=== PATIENT | male | born 1950 | race Caucasian/White ===

== ENCOUNTER → 2016-11-10 | Outpatient (CLI) | payer OTHER ==
[~2016-11-10] MED LIST: ASPI81TA28 PO; FINA5TAB PO; OMEG10007 PO; SIMV40TA2 PO
[2016-11-10 12:30] LABS: HEMATOCRIT 45.8 % (42-52); MEAN CELL VOLUME 86.9 fL (80-100); MEAN CORPUSCULAR HEMOGLOBIN 29.4 pg (25-34); MEAN CORPUSCULAR HGB CONC 33.8 g/dl (32-36); MEAN PLATELET VOLUME 10.7 fL (7.4-10.4); PLATELET COUNT 305 K/uL (130-400); RED BLOOD COUNT 5.27 M/uL (4.7-6.1); WHITE BLOOD COUNT 5.26 K/uL (4.8-10.8)
[2016-11-10 12:34] LABS: ALT/SGPT 38 U/L (12-78); BLOOD UREA NITROGEN 16 mg/dl (7-18); BUN/CREATININE RATIO 14.4 (10-20); CALCIUM 9.4 mg/dl (8.5-10.1); CARBON DIOXIDE 27 mmol/L (21-32); CHLORIDE 104 mmol/L (98-107); CHOLESTEROL 193 mg/dl (0-200); GLUCOSE 96 mg/dl (70-99); POTASSIUM 4.3 mmol/L (3.5-5.1); SODIUM 139 mmol/L (136-145)
[2016-11-10 12:38] LABS: ALB/GLOB RATIO 1.1 (0.9-2); ALKALINE PHOSPHATASE 71 U/L (45-117); AST/SGOT 18 U/L (15-37); HDL CHOLESTEROL 65 mg/dl; LDL CHOLESTEROL CALCULATED 110 mg/dl; TRIGLYCERIDES 90 mg/dl (0-150); VERY LOW DENSITY LIPOPROT CALC 18 mg/dl
[2016-11-10 13:05] LABS: ESTIMATED AVERAGE GLUCOSE 108 mg/dl; HA1C FLAG Normal (Normal)
== END | disposition home or self-care (01) ==
LOC: C.LABBFT 09:12
PROVIDERS: ATTEND Internal Medicine
DX: E78.5 Hyperlipidemia, unspecified (principal); R73.9 Hyperglycemia, unspecified; Z12.5 Encounter for screening for malignant neoplasm of prostate

== ENCOUNTER → 2017-11-15 | Outpatient (CLI) | payer OTHER ==
[2017-11-15 12:24] LABS: BASO % 0.4 %; BASO ABS # 0.02 K/uL (0-0.2); EOS % 6.3 %; EOS ABS # 0.32 K/uL (0-0.5); HEMOGLOBIN 14.8 g/dL (14.0-18.0); IG# 0.01 K/uL (0.00-0.02); LYMPH % 35.2 %; LYMPH ABS # 1.79 K/uL (1.2-3.4); MEAN CELL VOLUME 89.2 fL (80-100); MEAN CORPUSCULAR HGB CONC 33.6 g/dl (32-36); MEAN PLATELET VOLUME 10.3 fL (7.4-10.4); MONO % 6.9 %; MONO ABS # 0.35 K/uL (0.11-0.59); PLATELET COUNT 290 K/uL (130-400); RED CELL DISTRIBUTION WIDTH CV 13.6 % (11.5-14.5); RED CELL DISTRIBUTION WIDTH SD 44.6 fL (36.4-46.3); WHITE BLOOD COUNT 5.09 K/uL (4.8-10.8)
[2017-11-15 12:36] LABS: HEMOGLOBIN A1C 5.7 % (4.5-5.6)
[2017-11-15 12:56] LABS: BLOOD UREA NITROGEN 18 mg/dl (7-18); CREATININE 1.03 mg/dl (0.60-1.40); GLUCOSE 106 mg/dl (70-99)
[2017-11-15 12:57] LABS: ALBUMIN 4.1 gm/dl (3.4-5.0); ALT/SGPT 40 U/L (12-78); AST/SGOT 13 U/L (15-37); CALCIUM 8.9 mg/dl (8.5-10.1); CARBON DIOXIDE 26 mmol/L (21-32); POTASSIUM 4.1 mmol/L (3.5-5.1); SODIUM 138 mmol/L (136-145)
[2017-11-15 13:01] LABS: ALKALINE PHOSPHATASE 61 U/L (45-117); CHOLESTEROL 189 mg/dl (0-200); LDL CHOLESTEROL CALCULATED 110 mg/dl; TOTAL PROTEIN 7.4 gm/dl (6.4-8.2)
== END | disposition home or self-care (01) ==
LOC: C.LABBFT 07:43
PROVIDERS: ATTEND Internal Medicine
DX: E78.5 Hyperlipidemia, unspecified (principal); Z12.5 Encounter for screening for malignant neoplasm of prostate; R73.9 Hyperglycemia, unspecified

== ENCOUNTER → 2018-01-19 | Day surgery (SDC) | payer OTHER ==
[2018-01-10 16:35] VITALS: Ht 176.5 cm; Wt 90.9 kg
[~2018-01-19] VITALS: Ht 176.5 cm; Wt 90.9 kg
[~2018-01-19] MED LIST changes: +LIDOCAINE HCL 2% 2 ML VIAL (20MG/ML) ONE; +MULT-1027 PO; -OMEG10007 PO; +PROPOFOL IV EMULSION 10 MG/ML 20 ML VIAL ONE; +SODIUM CHLORIDE 0.9% 500ML 500 ML IV ONE
--- NOTE | 2018-01-19 14:01 | Endo History and Physical ---
History & Physical Date of Service: January 19, 2018. Chief Complaint: Hx of polyps Referring Physician: August Vaca History of Present Illness 67 yo CF who presents for colonoscopy secondary to history of colon polyps. Past Medical History Male Genitourinary Prob., High Cholesterol Past Surgical History Hx Cardiac Surgery: No Hx Internal Defibrillator: No Hx Pacemaker: No Hx Abdominal Surgery: Yes (HERNIA REPAIR) Hx of Implantable Prosthesis: No Hx Cancer Surgery: Yes (PROSTATE) Hx Thoracic Surgery: No Hx Orthopedic: Yes (R KNEE CARTLIDGE 30YRS AGO) Hx Urinary Tract Surgery: Yes (PROSTATE CANCER "SEEDING") Family History None Social History Smoking Status: Never Smoker Hx Substance Use: No Hx Alcohol Use: Yes (3-4 GLASSES OF WINE A WEEK) Allergies Coded Allergies: No Known Allergies (Unverified , 01/19/18) Current Medications Reported Home Medications Medications Dose Route/Sig Max Daily Dose Days Date Category Multi Vitamin (Multiple Vitamin) 1 Tab Tab 1 Tab PO DAILY 01/10/18 Reported Zocor (Simvastatin) 40 Mg Tab 40 Mg PO QPM 04/01/14 Reported Proscar (Finasteride) 5 Mg Tab 5 Mg PO DAILY 04/01/14 Reported Aspirin Ec (Aspirin) 81 Mg Tab 81 Mg PO DAILY 04/01/14 Reported Vital Signs Weight (Kilograms): 90.91 Height (Feet): 5 Height (Inches): 9.5 Date Time Temp Pulse Resp B/P (MAP) Pulse Ox O2 Delivery O2 Flow Rate FiO2 01/19/18 13:54 36.5 83 18 154/95 (114) 96 Room Air Physical Exam General Appearance: WD/WN, no apparent distress Respiratory/Chest: Auscultation: breath sounds normal Cardiovascular: Heart Auscultation: RRR Abdomen: Bowel Sounds: normal Inspection & Palpation: soft, non-distended, no tenderness, guarding & rebound Assessment and Plan Assessment: 30 yo female who presents for colonoscopy secondary to rectal bleeding. Plan: Proceed with colonoscopy.
--- NOTE | 2018-01-19 14:40 | Discharge Instructions ---
Endoscopy Patient Instructions Date / Procedure(s) Performed January 19, 2018. Colonoscopy Allergy Information Coded Allergies: No Known Allergies (Unverified , 01/19/18) Discharge Date / Findings January 19, 2018. Colon polyps Diverticulosis Internal hemorrhoids Medication Instructions Stopped Medication(s): 81mg Aspirin last taken on 01/09/18 OK to resume all medications today as prescribed Reported Home Medications Medications Dose Route/Sig Max Daily Dose Days Date Category Multi Vitamin (Multiple Vitamin) 1 Tab Tab 1 Tab PO DAILY 01/10/18 Reported Zocor (Simvastatin) 40 Mg Tab 40 Mg PO QPM 04/01/14 Reported Proscar (Finasteride) 5 Mg Tab 5 Mg PO DAILY 04/01/14 Reported Aspirin Ec (Aspirin) 81 Mg Tab 81 Mg PO DAILY 04/01/14 Reported Provider Instructions Activity Restrictions - No exercising or heavy lifting for 24 hours. - Do not drink alcohol the day of the procedure. - Do not drive a car or operate machinery until the day after the procedure. - Do not make any important decisions or sign important papers in 24 hours after the procedure. Following Day: - Return to full activity which may include returning to work/school. Diet Start your diet with liquids and light foods (jello, soup, juice, toast). Then eat your usual diet if not nauseated. Treatment For Common After Affects For mild abdominal pain, bloating, or excessive gas: - Rest - Eat lightly - Lie on right side Follow-Up Information Follow-up with August Vaca as scheduled Anesthesia Information What You Should Know You have had a procedure that required some medicine to reduce anxiety and discomfort. This treatment is called moderate sedation. After receiving the treatment, you may be sleepy, but you will be able to breathe on your own. The effects of the treatment may last for several hours. Follow these instructions along with Activity/Diet recommendations noted above: * Do NOT do anything where dizziness or clumsiness would be dangerous. * Rest quietly at home today, then you can be up and about tomorrow. * Have a responsible person stay with you the rest of today. * You may have had an I.V. today. If so, you may take the dressing off later today. Recommendations Call your doctor if: * Trouble breathing * Continuous vomiting for more than 24 hours * Temperature above 101 degrees * Severe abdominal pain or bloating * Pain not relieved by pain medicine ordered * There is increased drainage or redness from any incision * A large amount of rectal bleeding greater than 2-3 tablespoons. (If you had a polyp/s removed or have hemorrhoids, a small amount of blood - from the rectum is to be expected.) * You have any unanswered questions or concerns. IN THE EVENT OF A SERIOUS EMERGENCY, GO TO THE NEAREST EMERGENCY ROOM Your discharge instructions were prepared by provider Sumeet Cruz. Patient Instructions Signature Page Gama Servin Patient (or Guardian) Signature/Date: I have read and understand the instructions given to me by my caregivers. Caregiver/RN/Doctor Signature/Date: The above-named patient and/or guardian has received patient instructions on this date. + Original Patient Signature Page (only) stays with chart. Please make copy for patient.
--- NOTE | 2018-01-19 14:55 | GI REPORT ---
Patient Name: Gama Servin Procedure Date: 01/19/2018 2:17 PM Date of : 1950 Admit Type: Outpatient Age: 67 Gender: Male Attending MD: Sumeet Cruz DO Procedure: Colonoscopy Providers: Sumeet Cruz DO Referring MD: August Vaca Indications: High risk colon cancer surveillance: Personal history of colonic polyps Medicines: Monitored Anesthesia Care Complications: No immediate complications. Estimated Blood Loss: Estimated blood loss: none. Procedure: Pre-Anesthesia Assessment: - Prior to the procedure, a History and Physical was performed, and patient medications and allergies were reviewed. The patient's tolerance of previous anesthesia was also reviewed. The risks and benefits of the procedure and the sedation options and risks were discussed with the patient. All questions were answered, and informed consent was obtained. Prior Anticoagulants: The patient has taken aspirin, last dose was 10 days prior to procedure. ASA Grade Assessment: II - A patient with mild systemic disease. After reviewing the risks and benefits, the patient was deemed in satisfactory condition to undergo the procedure. After I obtained informed consent, the scope was passed under direct vision. Throughout the procedure, the patient's blood pressure, pulse, and oxygen saturations were monitored continuously. The scope was introduced through the anus and advanced to the terminal ileum. The colonoscopy was performed without difficulty. The patient tolerated the procedure well. The quality of the bowel preparation was good. The terminal ileum, ileocecal valve, appendiceal orifice, and rectum were photographed. Findings: The perianal and digital rectal examinations were normal. A 3 mm polyp was found in the ascending colon. The polyp was sessile. The polyp was removed with a cold biopsy forceps. Resection and retrieval were complete. Two sessile polyps were found in the ascending colon and cecum. The polyps were 4 to 6 mm in size. These polyps were removed with a hot snare. Resection and retrieval were complete. Multiple small-mouthed diverticula were found in the sigmoid colon. Non-bleeding internal hemorrhoids were found during retroflexion. The hemorrhoids were small. Impression: - One 3 mm polyp in the ascending colon, removed with a cold biopsy forceps. Resected and retrieved. - Two 4 to 6 mm polyps in the ascending colon and in the cecum, removed with a hot snare. Resected and retrieved. - Diverticulosis in the sigmoid colon. - Non-bleeding internal hemorrhoids. Recommendation: - Resume previous diet. - Continue present medications. - Repeat colonoscopy for surveillance based on pathology results. - Return to primary care physician as previously scheduled. Sumeet Cruz, DO 01/19/2018 2:55:19 PM This report has been signed electronically. Note Initiated On: 01/19/2018 2:17 PM Number of Addenda: 0 I attest to the content of the Intraoperative Record and orders documented therein, exceptions below {[id number]}
--- NOTE | 2018-01-19 15:04 | Anesthesiology Progress Note ---
Anesthesia Post Op Note Date & Time January 19, 2018 at 15:03 Vital Signs Pain Intensity: 0 Vital Signs Past 12 Hours Date Time Temp Pulse Resp B/P (MAP) Pulse Ox O2 Delivery O2 Flow Rate FiO2 01/19/18 14:45 81 20 124/76 (92) 96 Room Air 01/19/18 13:54 36.5 83 18 154/95 (114) 96 Room Air Notes Mental Status: alert / awake / arousable, participated in evaluation Pt Amnestic to Procedure: Yes Nausea / Vomiting: adequately controlled Pain: adequately controlled Airway Patency, RR, SpO2: stable & adequate BP & HR: stable & adequate Hydration State: stable & adequate Anesthetic Complications: no major complications apparent
[2018-01-19 15:17] VITALS: BP 131/87; PULSE 69; O2SAT 100
== END | disposition home or self-care (01) ==
LOC: C.GI 13:35
PROVIDERS: ATTEND Internal Medicine
DX: Z12.11 Encounter for screening for malignant neoplasm of colon (principal); D12.2 Benign neoplasm of ascending colon; D12.0 Benign neoplasm of cecum; K57.30 Diverticulosis of large intestine without perforation or abscess without bleeding; K64.8 Other hemorrhoids; Z86.010 Personal history of colon polyps; Z85.46 Personal history of malignant neoplasm of prostate; M19.90 Unspecified osteoarthritis, unspecified site; Z79.899 Other long term (current) drug therapy

== ENCOUNTER 2019-07-13 06:35 | Inpatient (IN) ==
--- NOTE | 2019-06-11 20:53 | PAT Medication Instructions ---
Medication Instructions Date of Service June 11, 2019 Home Medications aspirin 81 mg tablet 81 mg PO QAM finasteride 5 mg tablet 5 mg PO QAM multivitamin 1 tab PO QAM simvastatin 40 mg PO PM ASK your prescriber and surgeon aspirin 81 mg tablet 81 mg PO QAM DO NOT take the morning of surgery multivitamin 1 tab PO QAM Take morning of surgery With a small sip of water, OTHERWISE NOTHING TO EAT OR DRINK AFTER MIDNIGHT: finasteride 5 mg tablet 5 mg PO QAM Take evening before surgery simvastatin 40 mg PO PM Other Notes If you have any questions please call us at [phone] or [phone] or [phone] or [phone]
--- NOTE | 2019-06-12 10:15 | Anesthesiology Consultation ---
Date of Service June 12, 2019 Assessment & Plan (1) Encounter for pre-operative examination: Chart Review Chart Review: Pending: Refer to Additional Notes / Consult section (pending preop testing (labs, EKG, CXR)) and Patient seen in Pre Admission Testing Teaching & Discussion Pre-Anesthesia Teaching/Discussion Notes: Instructed NPO after midnight before surgery,except medications with 15 cc of water. Medication instructions provide d according to the PAT guidelines. History Surgery Operation Date: 07/13/19 08:20 Proposed Procedures p Right Total Shoulder Arthroplasty - Del Daugherty DO Height/Weight Height: 5 ft 9 in Weight: 98 kg Allergies Allergy/AdvReac Type Severity Reaction Status Date / Time No Known Allergies Allergy Unverified 06/05/19 08:27 Medications Home Medications Medication Instructions Recorded Confirmed Last Taken aspirin 81 mg tablet 81 mg PO QAM tab 04/05/19 06/05/19 Unknown finasteride 5 mg tablet 5 mg PO QAM #90 tab 04/05/19 06/05/19 Unknown multivitamin 1 tab PO QAM 06/05/19 06/05/19 Unknown simvastatin 40 mg PO PM 06/05/19 06/05/19 Unknown Past Medical History Medical History BPH (benign prostatic hyperplasia) Hyperlipidemia Osteoarthritis Exercise / Class Metabolic Activity II 4-5 Yardwork/Stairs/Walk up hill Past Family History Family History Mother Family history of reaction to anesthesia PONV Past Surgical History Surgical History History of arthroscopy of right knee History of colonoscopy History of repair of hiatal hernia History of surgery CALCIUM DEPOSIT REMOVED FROM SCALP Past Anesthesia History No Hx of Anesthesia Complications and No Family Hx of Anesthesia Complications History of PONV No Hx of PONV and No Hx of Motion Sickness Social History Smoking Status: Never smoker Do You Dip or Chew Tobacco: No Hx Alcohol Use: Yes Alcohol type: beer, wine and hard liquor alcohol intake frequency: a few times a week Hx Substance Use: No substance use type: does not use Review of Systems Patient denies chest pain, shortness of breath, dyspnea on exertion, reflux, cough, wheezing, palpitations. Physical Exam Vital Signs VITALS BP 135/85 P 66 TEMP 97.7 SP02 97%RA RESP 18 PHYSICAL Full neck and c-spine range of motion. Full TMJ range of motion. TMD 4 finger breaths Mallampati Score 3 Dentition: intact, crowns several all over Lungs: clear throughout to auscultation Cardiac: regular rate and rhythm, no murmurs noted Spine: normal Carotid arteries: negative bruit Extremities: no edema
--- NOTE | 2019-06-12 11:10 | XRay Report ---
TWO VIEW CHEST CLINICAL HISTORY: Preoperative examination. FINDINGS: PA and lateral chest radiographs are obtained. No prior studies are available for compariso n at the time of dictation. The heart is top normal for projection. Linear atelectasis is noted in the left lower lobe. The lungs and pleural spaces are otherwise clear. There is no pneumothorax. The skeletal structures are osteopenic. Mild degenerative change and scoliosis are noted in the thoracic spine. The bony thorax appears intact. IMPRESSION: No active disease in the chest. Electronically signed by: Niranjan Isaac M.D. 06/12/2019 11:08 AM
[2019-06-12 11:21] LABS: Basophils # (auto) 0.02 K/uL (0-0.2); Basophils % (auto) 0.4 %; Eosinophils # (auto) 0.07 K/uL (0-0.5); Eosinophils % (auto) 1.3 %; Hematocrit (blood only) 44.6 % (42-52); Hemoglobin 15.2 g/dL (14.0-18.0); Immature Granulocytes # (auto) 0.01 K/uL (0.00-0.02); Immature Granulocytes % (auto) 0.2 %; Lymphocytes # (auto) 1.43 K/uL (1.2-3.4); Lymphocytes % (auto) 25.6 %; Mean Corpuscular Hemoglobin 30.7 pg (25-34); Mean Corpuscular Hgb Conc 34.1 g/dL (32-36); Mean Corpuscular Volume 90.1 fL (80-100); Mean Platelet Volume 10.7 fL (7.4-10.4); Monocytes # (auto) 0.43 K/uL (0.11-0.59); Monocytes % (auto) 7.7 %; Neutrophils # (auto) 3.62 K/uL (1.4-6.5); Neutrophils % (auto) 64.8 %; Platelet Count 297 K/uL (130-400); RDW Coefficient of Variation 13.4 % (11.5-14.5); Red Blood Count 4.95 M/uL (4.7-6.1); White Blood Count 5.58 K/uL (4.8-10.8)
[2019-06-12 11:31] LABS: Partial Thromboplastin Time 26.9 Seconds (21.0-31.0); Prothrombin Time 10.5 Seconds (9.0-12.0)
[2019-06-12 11:54] LABS: BUN Creatinine Ratio 13.3 (10-20); Calcium 9.8 mg/dl (8.5-10.1); Creatinine Clr Calc Pharmacy 82.7 ml/min; Est GFR (African American) 92.4; Est GFR (Non-African American) 79.8; Potassium 4.2 mmol/L (3.5-5.1)
--- NOTE | 2019-07-12 14:41 | History & Physical Report ---
Date of Service July 12, 2019 Assessment & Plan (1) Osteoarthritis of right shoulder: We will proceed with a right total shoulder arthroplasty. Postoperatively he will be placed in a sling and kept overnight in the hospital for postoperative medical management. He plans to use energy physical therapy upon discharge. Present on Admission?: Yes History of Present Illness Chief Complaint: Primary osteoarthritis of the right shoulder Primary Care Provider: August Vaca MD Gama is a pleasant 69-year-old male who is been dealing with chronic increasing right shoulder pain. X-rays and clinical examination have been diagnostic for primary osteoarthritis of the right shoulder. After failing conservative treatment, he has elected to proceed with a right total shoulder arthroplasty. Allergies Allergy/AdvReac Type Severity Reaction Status Date / Time No Known Allergies Allergy Unverified 06/05/19 08:27 Home Medications Home Medications Medication Instructions Recorded Confirmed Type aspirin 81 mg tablet 81 mg PO QAM tab 04/05/19 06/05/19 History finasteride 5 mg tablet 5 mg PO QAM #90 tab 04/05/19 06/05/19 History multivitamin 1 tab PO QAM 06/05/19 06/05/19 History simvastatin 40 mg PO PM 06/05/19 06/05/19 History Past Med/Surg History Medical History BPH (benign prostatic hyperplasia) Hyperlipidemia Osteoarthritis Surgical History History of arthroscopy of right knee History of colonoscopy History of repair of hiatal hernia History of surgery CALCIUM DEPOSIT REMOVED FROM SCALP Family History Mother Family history of reaction to anesthesia PONV Social History Preferred Language: Slovak Communication Ability: Effective 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 Beliefs That Will Affect Care: None Current Living Situation: Spouse Feels Safe at Home: Yes Smoking Status: Never smoker Second Hand Exposure: Yes ( A CHILD) ; Hx Alcohol Use: Yes Alcohol type: beer, wine and hard liquor Hx Substance Use: No Review of Systems All systems reviewed & are unremarkable except as noted in HPI & below Physical Exam Constitutional: WD/WN, vitals as above Eyes: PERRL, conjunctivae normal, anicteric sclerae ENMT: external ear and nose normal, oropharynx normal Neck: trachea midline, no thyromegaly Respiratory: normal respiratory effort Cardiovascular: RRR, no murmur, no edema Gastrointestinal (Abdomen): normal bowel sounds, soft, nontender, no hepatosplenomegaly Musculoskeletal: Physical examination of the right shoulder reveals decreased range of motion and crepitis throughout. There is good strength with full can testing and external rotation. There is tenderness palpation along the anterior glenohumeral joint line. The right upper extremity is neurovascularly intact. Psychiatric: A+Ox3, euthymic affect Results & Data Diagnostic Findings Radiographs of the right shoulder show osteoarthritis of the glenohumeral joint. There is joint space narrowing, osteophyte formation, and uxlu-mm-glet articulation.
[~2019-07-13 06:35] MED LIST changes: +ACETAMINOPHEN 500 MG TAB PO SCH; -ASPI81TA28 PO; +BUPIVACAINE 0.5 % 5 MG/1 ML PF 10ML VIAL ONE; +CEFAZOLIN 2000MG 2,000 MG/15 ML SYR IV SCH; +FAMOTIDINE 20 MG TAB PO SCH; -FINA5TAB PO; +GABAPENTIN 300 MG CAP PO SCH; -LIDOCAINE HCL 2% 2 ML VIAL (20MG/ML) ONE; +LR 15ML/HR IV SCH; +LR 60ML/HR IV SCH; -MULT-1027 PO; -PROPOFOL IV EMULSION 10 MG/ML 20 ML VIAL ONE; +ROPIVACAINE 0.5% HCL/PF 150 MG, BUPIVACAINE 0.5% MPF 30 ML, EPINEPHrine 30MG/30ML (OR U... INSTIL SCH; -SIMV40TA2 PO; -SODIUM CHLORIDE 0.9% 500ML 500 ML IV ONE; +TRANEXAMIC ACID 1,000 MG **IV Intra-op IV SCH; +TRANEXAMIC ACID 1,000 MG **IV Pre-op IV SCH
--- NOTE | 2019-07-13 06:50 | History & Physical Bridge Note ---
Date of Service July 13, 2019 History & Physical Bridge Note I have examined the patient, reviewed the History & Physical and in the interval since the performance of the History & Physical I have noted the following changes of clinical significance: no changes noted
[2019-07-13] MEDS ORDERED: MIDAZOLAM HCL 1 MG/ML 2ML VIAL ONE (07:28)
[2019-07-13] MEDS ORDERED: fentaNYL citrate 100 MCG/2 ML VIAL ONE ×2 (07:28→11:03)
[2019-07-13] MEDS ORDERED: LIDOCAINE HCL 2% 2 ML VIAL/AMP(20MG/ML) INFIL ONE (07:28)
[2019-07-13] MEDS ORDERED: ONDANSETRON INJ 2 MG/ML 2 ML VIAL ONE (07:28)
[2019-07-13] MEDS ORDERED: PROPOFOL IV EMULSION 10 MG/ML 20 ML VIAL IV ONE (07:28)
[2019-07-13] MEDS ORDERED: HYDROmorphone INJ 1 MG/ML SYRINGE IV PRN (07:58)
[2019-07-13] MEDS ORDERED: ATROPINE SULFATE 0.1 MG/ML 10ML SYR IV PRN (07:58)
[2019-07-13] MEDS ORDERED: ONDANSETRON INJ 2 MG/ML 2 ML VIAL IV PRN ×2 (07:58→12:28)
[2019-07-13] MEDS ORDERED: ePHEDrine sulfate 50 MG/ML AMP IV PRN (07:58)
[2019-07-13] MEDS ORDERED: fentaNYL citrate 100 MCG/2 ML VIAL IV PRN (07:58)
[2019-07-13] MEDS ORDERED: ORTHO JOINT ANESTHETIC ONE (08:58)
--- NOTE | 2019-07-13 10:42 | Operative Report ---
Post Operative Report Pre & Post Diagnosis Operation Date: 07/13/19 09:10 Pre-Op Diagnosis: RIGHT SHOULDER DEGENERATIVE JOINT DISEASE Post-Op Diagnosis: RIGHT SHOULDER DEGENERATIVE JOINT DISEASE I identified the patient and participated in the time-out.: Yes Procedure Operation Date: 07/13/19 09:10 Actual Procedures p Right Total Shoulder Arthroplasty(Right) - Del Daugherty DO Surgeon Del Daugherty, Trains Service Conductor Del Crowley PAC Estimated Blood Loss 150 Findings Consistent with Post-Op Diagnosis Specimens Right humeral head Complications none Disposition Disposition: Recovery Room Indications Gama is a pleasant 69-year-old male who presented my office with chronic increasing right shoulder pain. X-rays and clinical examination were diagnostic for advanced osteoarthritis of the right shoulder. After failing conservative treatment, he elected to proceed with a right total shoulder arthroplasty. Description of Procedure Implants used: I used a Biomet Comprehensive total shoulder arthroplasty system with a size 12 press fit mini humeral stem, a size 54 x 21 eccentric humeral head, and a large size glenoid with a Regenerex peg. The glenoid was cemented in place with Palac os G cement. The patient arrived at [facility] for the above procedure. There were seen in the preoperative holding area and the operative extremity was identified and signed. They were given a preoperative antibiotic and an interscalene nerve block. They were taken back to the operating room, laid on table in supine position, and put under general anesthesia. They were then put into the beachchair position. The shoulder was then prepped and draped in sterile fashion. A timeout was done and the patient and the operative extremity was properly identified. A deltopectoral approach was used. Dissection was taken down through the fascia and the deltoid was retracted laterally and the conjoined tendon was retracted medially. The anterior shoulder was exposed. The long head of the biceps tendon was tenodesed to the upper border of the pectoralis major. The subscapularis was then released off the lesser tuberosity with a centimeter of cuff tissue remaining. The inferior capsule was released and the humeral head was dislocated. The rotator cuff was inspected and intact. A canal finding reamer was sent down the center of the humeral canal. Sequential reaming up to a size 12 reamer was done. Offset reamer a proximal humeral resection guide was placed. The proximal humerus was resected at 135 of inclination and 30 of retroversion. Inferior osteophytes were then removed and the glenoid was exposed. Time was spent doing an appropriate labral release. The glenoid measured to be a size large. A Biomet signature guide was then attached onto the anterior rim of the glenoid. A 3.2 mm Steinmann pin was then placed in the total shoulder arthroplasty hole. The glenoid was then reamed with a propeller reamer. The central post cutter was then used to prepare for the central boss. The cannulated peripheral peg drill guide was then placed and 3 peg holes were drilled. The final size large glenoid was then cemented in place with Palacos G cement. Surrounding soft tissues were then injected with 100 cc of an orthopedic pain control cocktail. Once cement had dried the proximal humerus was once again exposed. Sequential broaching of the humerus up to a size 12 broach was done. Off that broach a size 54 x 21 eccentric humeral head was trialed. The shoulder was then reduced, brought through a full range of motion and felt to be stable. The shoulder was then dislocated and the broach was removed. The final size 12 mini humeral stem implant was then impacted into place. A size 54 x 21 eccentric humeral head was then impacted onto the humeral stem. The shoulder was then reduced and once again brought through a full range of motion and felt to be stable. The subscapularis was then tenodesed back to the lesser tuberosity with transosseous FiberWire sutures and side to side sutures with the arm in 45 of external rotation. 2 sutures were placed in the lateral rotator interval. A dilute betadyne lavage was then done for 3 minutes. The joint was then irrigated with normal saline solution. Hemostasis was obtained. The skin was then closed with 2-0 Vicryl, 3-0V lock suture, and bryanna. A soft dressing was placed as well as a regular arm sling. The patient was then extubated and transferred to a hospital bed. There were taken to the postanesthesia care unit in stable condition. The tolerated the procedure well. I attest to the content of the Intraoperative Record and any orders documented therein. Any exceptions are noted below.
[2019-07-13] MEDS ORDERED: GLYCOPYRROLATE 0.2 MG/ML VIAL ONE (10:51)
[2019-07-13] MEDS ORDERED: NEOSTIGMINE METHYLSULFATE 5 MG/5 ML SYR ONE (10:51)
[2019-07-13] MEDS ORDERED: PHENYLEPHRINE 100MCG/ML 5ML SYR ONE (10:51)
[2019-07-13] MEDS ORDERED: ePHEDrine sulfate 50 MG/ML SYR ONE (10:51)
[2019-07-13] MEDS ORDERED: ROCURONIUM BROMIDE 10 MG/ML 5 ML VIAL ONE (10:51)
--- NOTE | 2019-07-13 11:34 | XRay Report ---
XR shoulder RT min 2V routine CLINICAL HISTORY: Post shoulder surgery COMPARISON STUDY: Right shoulder CT 06/12/2019. FINDINGS: Status post right total shoulder arthroplasty. The hardware appears intact. No fracture or dislocation. Skin bryanna are in place. IMPRESSION: Status post right total shoulder arthroplasty. No evidence for hardware complication. Electronically signed by: Ghanshyam Hill M.D. 07/13/2019 11:32 AM
[2019-07-13] MEDS ORDERED: MAGNESIUM HYDROXIDE SUSP 30 ML UDC PO PRN (12:28)
[2019-07-13] MEDS ORDERED: NALOXONE HCL 0.4 MG/1 ML VIAL/CARP IV PRN (12:28)
[2019-07-13] MEDS ORDERED: HYDROmorphone INJ 0.5 MG/0.5 ML SYR IV PRN (12:28)
[2019-07-13] MEDS ORDERED: BISACODYL 10 MG SUPP PR PRN (12:28)
[2019-07-13] MEDS ORDERED: OXYCODONE HCL IR 5 MG TAB (IMMEDIATE RELEASE) PO PRN (12:28)
[2019-07-13] MEDS ORDERED: METOCLOPRAMIDE HCL INJ 5 MG/ML 2 ML VIAL IV PRN (12:28)
[2019-07-13] MEDS ORDERED: SODIUM CHLORIDE 0.9% 1000ML 1,000 ML IV SCH (12:28)
[2019-07-13] MEDS: KETOROLAC TROMETHAMINE 15 MG/ML VIAL IV SCH ×2 (13:31→18:53)
[2019-07-13] MEDS: ACETAMINOPHEN 500 MG TAB PO SCH ×2 (13:31→21:03)
--- NOTE | 2019-07-13 14:30 | Anesthesiology Progress Note ---
Date of Service July 13, 2019 Anesthesia Post Procedure Vital Signs Vital Signs: Temp Pulse Pulse Pulse Resp BP BP 07/13/19 13:25 36.4 C L 84 17 120/74 07/13/19 12:49 36.4 C L 63 17 120/74 07/13/19 12:15 36.5 C 66 18 128/82 07/13/19 11:55 36.1 C L 70 16 134/88 07/13/19 11:45 82 16 138/88 07/13/19 11:35 77 14 154/88 H 07/13/19 11:25 88 14 163/90 H 07/13/19 11:15 36 C L 73 12 136/97 07/13/19 07:01 36.7 C 75 22 147/93 H Pulse Ox 07/13/19 13:25 96 07/13/19 12:49 94 07/13/19 12:15 96 07/13/19 11:55 95 07/13/19 11:45 96 07/13/19 11:35 98 07/13/19 11:25 99 07/13/19 11:15 99 07/13/19 07:01 98 Transfer of Care Handoff Completed per policy Notes Mental Status: alert / awake / arousable and participated in evaluation Patient Amnestic to Procedure: Yes Nausea / Vomiting: adequately controlled Pain: adequately controlled Airway Patency, RR, SpO2: stable & adequate BP & HR: stable & adequate Hydration State: stable & adequate Anesthetic Complications: no major complications apparent and Pt Satisfied with anesthetic care
[2019-07-13] MEDS: CEFAZOLIN 2000MG 2,000 MG/15 ML SYR IV SCH (16:29)
[2019-07-13] MEDS ORDERED: SIMVASTATIN 40 MG TAB PO SCH (21:00)
[2019-07-13] MEDS ORDERED: SENNA 8.6 MG TAB PO SCH (21:00)
[2019-07-13] MEDS: DOCUSATE SODIUM 100 MG CAP PO SCH (21:03)
[2019-07-14] MEDS: KETOROLAC TROMETHAMINE 15 MG/ML VIAL IV SCH ×2 (00:03→06:13)
[2019-07-14] MEDS: CEFAZOLIN 2000MG 2,000 MG/15 ML SYR IV SCH (00:09)
[2019-07-14 05:24] LABS: Basophils # (auto) 0.01 K/uL (0-0.2); Basophils % (auto) 0.1 %; Eosinophils # (auto) 0.01 K/uL (0-0.5); Eosinophils % (auto) 0.1 %; Hematocrit (blood only) 38.6 % (42-52); Hemoglobin 12.8 g/dL (14.0-18.0); Immature Granulocytes # (auto) 0.02 K/uL (0.00-0.02); Immature Granulocytes % (auto) 0.2 %; Lymphocytes # (auto) 1.13 K/uL (1.2-3.4); Lymphocytes % (auto) 9.9 %; Mean Corpuscular Hemoglobin 29.8 pg (25-34); Mean Corpuscular Hgb Conc 33.2 g/dL (32-36); Mean Platelet Volume 10.1 fL (7.4-10.4); Monocytes # (auto) 0.93 K/uL (0.11-0.59); Monocytes % (auto) 8.2 %; Neutrophils # (auto) 9.29 K/uL (1.4-6.5); Neutrophils % (auto) 81.5 %; Platelet Count 249 K/uL (130-400); RDW Coefficient of Variation 13.5 % (11.5-14.5); RDW Standard Deviation 44.3 fL (36.4-46.3); Red Blood Count 4.29 M/uL (4.7-6.1); White Blood Count 11.39 K/uL (4.8-10.8)
[2019-07-14 05:54] LABS: BUN Creatinine Ratio 13.1 (10-20); Calcium 8.5 mg/dl (8.5-10.1); Creatinine Clr Calc Pharmacy 76.8 ml/min; Est GFR (African American) 85.9; Est GFR (Non-African American) 74.1; Potassium 4.2 mmol/L (3.5-5.1)
[2019-07-14] MEDS: ACETAMINOPHEN 500 MG TAB PO SCH (06:12)
[2019-07-14] MEDS: DOCUSATE SODIUM 100 MG CAP PO SCH (08:37)
--- NOTE | 2019-07-14 08:44 | Orthopedic Progress Note ---
Date of Service July 14, 2019 Assessment & Plan (1) Osteoarthritis of right shoulder: Overall is doing very well. Is not having pain in the right shoulder. He will be seen by physical therapy this morning for ambulation and range of motion exercises. He can be discharged home later this morning. He will follow-up with orthopedics in 2 weeks. Present on Admission?: Yes Subjective Gama was seen and examined at bedside this morning. Overall is doing very well. Is not have any pain in the right shoulder. He is happy with his progress and has no complaints. Physical Exam Musculoskeletal: On physical examination of the right shoulder, the dressing is clean and dry. He is still having difficulty dorsiflexing his wrist and extend his thumb. The nerve block is still in effect. He is wearing a sling as instructed. Results & Data Vital Signs (Past 12 Hours) Vital Signs Temp Pulse Resp BP Pulse Ox 07/14/19 07:12 36.5 C 66 18 137/78 97 07/14/19 03:20 36.8 C 64 18 123/74 96 07/13/19 23:45 36.6 C 61 16 120/74 95 Laboratory Results H & H 06/12/19 07/14/19 Range/Units 10:35 05:01 Hgb 15.2 12.8 L (14.0-18.0) g/dL Hct 44.6 38.6 L (42-52) % Coagulation 06/12/19 Range/Units 10:35 INR 1.0 (0.9-1.1) Diagnostic Findings Postoperative x-rays of the right shoulder show the prosthesis to be in anatomic alignment without any evidence of fracture, dislocation, or loosening. PG Care Time/CCT Total # of Minutes Spent Total Time Spent with Patient: Total time spent is greater than 50% in coordination of care (as documented) at patient's floor/unit and/or counseling patient:
--- NOTE | 2019-07-14 08:45 | Discharge Summary ---
Date of Service July 14, 2019 Admission HPI Per Admitting Provider Gama is a pleasant 69-year-old male who is been dealing with chronic increasing right shoulder pain. X-rays and clinical examination have been diagnostic for primary osteoarthritis of the right shoulder. After failing conservative treatment, he has elected to proceed with a right total shoulder arthroplasty. Principal Diagnosis Right total shoulder arthroplasty Discharge Data Allergies Allergy/AdvReac Type Severity Reaction Status Date / Time No Known Allergies Allergy Verified 07/13/19 06:59 Consultations 07/13/19 12:28 Consult Case Management - Discharge Planning Routine Procedures Performed Operation Date: 07/13/19 09:10 Actual Procedures p Right Total Shoulder Arthroplasty(Right) - Del Daugherty DO Ordered Studies 07/13/19 05:00 US - OR guided needle placemen Routine Hospital Course (1) Osteoarthritis of right shoulder: On July 13, 2019 Gama arrived at [facility] and underwent a right total shoulder arthroplasty without complication. He had a general anesthetic and a right interscalene nerve block. Postoperatively he was placed in the arm sling and discharged to general orthopedic floors. His hospital course is uneventful. On postop day #1 his H&H was stable and his pain was well controlled. He was able to participate well with physical therapy. He was then discharged home. He will follow-up with orthopedics in 2 weeks. Total Time Total Time Spent Total Time Spent (In Minutes): 20 Discharge Plan Discharge Items Patient Disposition: Home - Home Health Services Reason For Visit: RIGHT SHOULDER DEGENERATIVE JOINT DISEASE Discharge Diagnosis: Right total shoulder arthroplasty Activity: As commented below Non-emergency contact: Surgeon Call non-emergency contact if: your wound has increased redness and your wound has increased drainage Follow-up/Referrals: August Vaca III, MD [Primary Care Provider] - Diet: Regular Addtl Attending Provider Instructions: Activity and Therapy Recommendations: * If you are using [facility] then therapy will be provided at your home until they feel you have accomplished all of your goals. * If you are using [facility] then Physical Therapy will be provided until they feel you are ready to start Outpatient Physical Therapy. * If you are not using home therapy then Outpatient Physical Therapy should start about 3-5 days from your day of surgery. Therapy will last about 8-12 weeks * Wear your sling for 3 weeks, unless otherwise instructed. You may remove your sling to shower and to dress, but otherwise, you should be in your sling at all times, including while sleeping * The shoulder replacement is very stable and you can use your hand while in the sling * You were shown a series of exercises in the hospital. Do these exercises daily including the exercises you were shown in physical therapy. Medications: * Narcotic You will likely be sent home from the hospital with a prescription for the narcotic pain medication that worked best throughout your stay. * Other medications may be prescribed for specific circumstances. If you have any questions, please call the office at . * Resume previous home medications unless otherwise instructed Dressing Care: Leave the plastic dressing in place for 5 days. After 5 days you may remove the plastic dressing. If the incision is not draining then you may leave the bryanna open to air. If there is a little bit of drainage or if the bryanna are getting stuck on your clothing then cover the incision with a dry dressing. The bryanna will be removed at your 2 week follow-up appointment. Showering: You may shower with the plastic dressing in place. Let the shower spray hit the other shoulder. You can pat the plastic dry. If the dressing becomes wet underneath the plastic then simply remove the dressing. Keep the incision dry until you are 5 days out from the day of surgery. At that time you can shower with the bryanna exposed. Let the soapy shower water run over the bryanna and pat them dry. Do not scrub or soak the incision. Things To Watch For: * Drainage from the incision site that occurs more than one week after your surgery. * Increased redness at the incision site. * Fever above 102 degrees Fahrenheit. * Unusual chest pain or shortness of breath. * Call [facility] at with any of the above problems Follow-Up Visit: Follow-up with Dr. Daugherty 2-3 weeks after your day of surgery. An appointment was probably scheduled when you signed-up for surgery in the office. If you have any questions call Office Instructions: More detailed instructions as well as Frequently Asked Questions were provided in a folder by our office when you signed-up for surgery. Please review these instructions when you get home. If you have any further questions or concerns, please feel free to call the office at [phone] Pending Studies at Discharge: No Stand-Alone Forms: My [facility], Smoking Cessation Medications and DC Order Prescriptions: New oxycodone 5 mg Tablet 5 mg PO Q4H PRN (Reason: pain) Qty: 30 RF: 0 Continued finasteride [Proscar] 5 mg tablet 5 mg PO QAM Qty: 90 RF: 0 aspirin 81 mg tablet 81 mg PO QAM RF: 0 multivitamin Tablet 1 tab PO QAM RF: 0 simvastatin 40 mg Tablet 40 mg PO PM RF: 0 Discharge Orders: Discharge Order (Routine); Ordered 07/14/19 Ordered By: Del Daugherty Admission Data Admit Date/Time: 07/13/19 11:10 Attending Provider: Del Daugherty Admit Provider: Del Daugherty Primary Care Provider: August Vaca III
[2019-07-14] MEDS ORDERED: FINASTERIDE 5 MG TAB PO SCH (09:00)
[2019-07-14] MEDS ORDERED: MULTIVITAMIN TAB PO SCH (09:00)
== END 2019-07-14 10:13 | disposition home health service (06) | DRG 483 ==
LOC: ASU 06:35 → 3E 11:10

== ENCOUNTER 2019-09-21 06:32 | Observation (INO) ==
--- NOTE | 2019-08-28 14:46 | PAT Medication Instructions ---
Medication Instructions Date of Service August 28, 2019 Home Medications finasteride 5 mg tablet 5 mg PO QAM multivitamin 1 tab PO QAM simvastatin 40 mg PO PM aspirin [Aspirin Low Dose] 81 mg PO QAM DO NOT take the morning of surgery multivitamin 1 tab PO QAM Take morning of surgery With a small sip of water, OTHERWISE NOTHING TO EAT OR DRINK AFTER MIDNIGHT: finasteride 5 mg tablet 5 mg PO QAM aspirin [Aspirin Low Dose] 81 mg PO QAM Take evening before surgery simvastatin 40 mg PO PM Other Notes If you have any questions please call us at [phone] or [phone] or [phone] or [phone]
--- NOTE | 2019-08-30 14:09 | PAT Medication Instructions ---
Medication Instructions Date of Service August 30, 2019 Home Medications finasteride 5 mg tablet 5 mg PO QAM multivitamin 1 tab PO QAM simvastatin 40 mg PO PM aspirin [Aspirin Low Dose] 81 mg PO QAM DO NOT take the morning of surgery multivitamin 1 tab PO QAM Take morning of surgery With a small sip of water, OTHERWISE NOTHING TO EAT OR DRINK AFTER MIDNIGHT: finasteride 5 mg tablet 5 mg PO QAM aspirin [Aspirin Low Dose] 81 mg PO QAM Take evening before surgery simvastatin 40 mg PO PM Other Notes If you have any questions please call us at [phone] or [phone] or [phone] or [phone]
--- NOTE | 2019-08-31 12:03 | Anesthesiology Consultation ---
Date of Service August 31, 2019 Assessment & Plan (1) Encounter for pre-operative examination: Chart Review Chart Review: Acceptable Risk for Surgery (pending pre-op labs ) and Patient seen in Pre Admission Testing Teaching & Discussion Instructed NPO after midnight before surgery, except medications with 15 cc of water. Medication instructions provided according to the PAT guidelines. History Surgery Operation Date: 09/21/19 11:30 Proposed Procedures p Right Total Knee Arthroplasty - Del Daugherty, Height/Weight Height: 5 ft 9 in Weight: 95.7 kg Allergies Allergy/AdvReac Type Severity Reaction Status Date / Time No Known Allergies Allergy Verified 07/13/19 06:59 Medications Home Medications Medication Instructions Recorded Confirmed Last Taken finasteride 5 mg tablet 5 mg PO QAM #90 tab 04/05/19 08/28/19 07/12/19 08:00 multivitamin 1 tab PO QAM 06/05/19 08/28/19 07/11/19 simvastatin 40 mg PO PM 06/05/19 08/28/19 07/12/19 19:00 aspirin [Aspirin Low Dose] 81 mg PO QAM 08/27/19 08/28/19 Unknown Past Medical History Medical History BPH (benign prostatic hyperplasia) Hyperlipidemia Osteoarthritis Exercise / Class Metabolic Activity II 4-5 Yardwork/Stairs/Walk up hill Past Family History Family History Mother Family history of reaction to anesthesia PONV Past Surgical History Surgical History History of arthroscopy of right knee History of colonoscopy History of repair of hiatal hernia History of surgery CALCIUM DEPOSIT REMOVED FROM [facility] History of total replacement of right shoulder joint (~07/2019) Past Anesthesia History No Hx of Anesthesia Complications and No Family Hx of Anesthesia Complications S/P TSA @ [facility] 07/13/19 = MAC 4, ETT 7.5, GV II. Atraumatic intubation x 1 attempt. History of PONV No Hx of PONV and No Hx of Motion Sickness Social History Smoking Status: Never smoker Do You Dip or Chew Tobacco: No Hx Alcohol Use: Yes Alcohol type: beer, wine and hard liquor alcohol intake frequency: a few times a week Hx Substance Use: No substance use type: does not use Review of Systems Pt denies any recent chest pain, shortness of breath, palpitations, cough, fever or URI. Physical Exam Vital Signs BP: 116/81 P: 80bpm SPO2: 96% RA T: 98.0 F R: 12 ENMT Mouth: + dental restorations (few crowns); no chipped teeth and no loose teeth Thyromental Distance: < 3.5 Finger Breadths (3) Mallampati Class: IV Neck normal visual inspection; neck extension not limited Respiratory normal respiratory effort Auscultation: lungs clear to auscultation bilaterally Cardiovascular Rate/Rhythm: regular rate and regular rhythm Heart Sounds: no murmur Vessels: no carotid bruit Extremities: no edema Testing Electrocardiogram Date: 06/12/19 Findings: + NSR @ (64bpm) Rightward axis, iRBBB. Chest X-Ray Date: 06/12/19 Findings: + NAD
[2019-08-31 13:30] LABS: Basophils # (auto) 0.02 K/uL (0-0.2); Basophils % (auto) 0.4 %; Eosinophils # (auto) 0.05 K/uL (0-0.5); Eosinophils % (auto) 0.9 %; Hematocrit (blood only) 42.3 % (42-52); Immature Granulocytes # (auto) 0.02 K/uL (0.00-0.02); Immature Granulocytes % (auto) 0.4 %; Lymphocytes # (auto) 1.56 K/uL (1.2-3.4); Lymphocytes % (auto) 29.4 %; Mean Corpuscular Hemoglobin 29.4 pg (25-34); Mean Corpuscular Hgb Conc 33.1 g/dL (32-36); Mean Corpuscular Volume 88.7 fL (80-100); Mean Platelet Volume 10.3 fL (7.4-10.4); Monocytes # (auto) 0.44 K/uL (0.11-0.59); Monocytes % (auto) 8.3 %; Neutrophils # (auto) 3.21 K/uL (1.4-6.5); Neutrophils % (auto) 60.6 %; Platelet Count 334 K/uL (130-400); RDW Coefficient of Variation 13.7 % (11.5-14.5); RDW Standard Deviation 44.6 fL (36.4-46.3); Red Blood Count 4.77 M/uL (4.7-6.1)
[2019-08-31 13:46] LABS: Prothrombin Time 10.4 Seconds (9.0-12.0)
[2019-08-31 13:48] LABS: BUN Creatinine Ratio 15.2 (10-20); Calcium 8.8 mg/dl (8.5-10.1); Creatinine Clr Calc Pharmacy 90.2 ml/min; Est GFR (African American) 101.3; Est GFR (Non-African American) 87.4; Potassium 3.8 mmol/L (3.5-5.1)
--- NOTE | 2019-09-20 16:11 | History & Physical Report ---
Date of Service September 20, 2019 Assessment & Plan (1) Osteoarthritis of right knee: We will proceed with a right total knee arthroplasty. Postoperatively he will be placed on aspirin for DVT prophylaxis. He will be kept overnight in the hospital for postoperative medical management. [facility] plans [facility]. Present on Admission?: Yes History of Present Illness Chief Complaint: Primary osteoarthritis of the right knee Primary Care Provider: August Vaca MD Gama is a pleasant 69-year-old male who is 6 weeks status post right total shoulder arthroplasty. He is also dealing with a lot of arthritis in his right knee. X-rays and clinical examination have been diagnostic for primary osteoarthritis. After failing conservative treatment, he has elected proceed with a right total knee arthroplasty. Allergies Allergy/AdvReac Type Severity Reaction Status Date / Time No Known Allergies Allergy Verified 07/13/19 06:59 Home Medications Home Medications Medication Instructions Recorded Confirmed Type finasteride 5 mg tablet 5 mg PO QAM #90 tab 04/05/19 08/28/19 History multivitamin 1 tab PO QAM 06/05/19 08/28/19 History simvastatin 40 mg PO PM 06/05/19 08/28/19 History aspirin [Aspirin Low Dose] 81 mg PO QAM 08/27/19 08/28/19 History Past Med/Surg History Medical History BPH (benign prostatic hyperplasia) Hyperlipidemia Osteoarthritis Surgical History History of arthroscopy of right knee History of colonoscopy History of repair of hiatal hernia History of surgery CALCIUM DEPOSIT REMOVED FROM [facility] History of total replacement of right shoulder joint (~07/2019) Family History Mother Family history of reaction to anesthesia PONV Social History Preferred Language: Divehi Communication Ability: Effective 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 Beliefs That Will Affect Care: None marital status: Current Living Situation: Spouse Other Information That Helps Us Care for You: No Feels Safe at Home: Yes Safety Concerns: Feels Safe At This Time Smoking Status: Never smoker Do You Dip or Chew Tobacco: No ; Second Hand Exposure: Yes (as a child) ; Tobacco Cessation Education Requested by Patient: No Hx Alcohol Use: Yes Alcohol type: beer, wine and hard liquor Hx Substance Use: No Review of Systems All systems reviewed & are unremarkable except as noted in HPI & below Physical Exam Constitutional: WD/WN, vitals as above Eyes: PERRL, conjunctivae normal, anicteric sclerae ENMT: external ear and nose normal, oropharynx normal Neck: trachea midline, no thyromegaly Respiratory: normal respiratory effort Cardiovascular: RRR, no murmur, no edema Gastrointestinal (Abdomen): normal bowel sounds, soft, nontender, no hepatosplenomegaly Musculoskeletal: On physical examination of the right knee there is a trace effusion. There is near full range of motion and no evidence of instability. There is significant tenderness palpation along the medial and lateral joint lines and over the distal femoral condyles. Psychiatric: A+Ox3, euthymic affect Results & Data Diagnostic Findings Radiographs of the right knee demonstrate advanced osteoarthritis with joint space narrowing osteophyte formation and [id number] articulation.
[~2019-09-21 06:32] MED LIST changes: -BUPIVACAINE 0.5 % 5 MG/1 ML PF 10ML VIAL ONE; -LR 15ML/HR IV SCH; +LR 500ML BOLUS, THEN 15ML/HR IV SCH; +dexAMETHasone 4 MG TAB PO SCH
[2019-09-21] MEDS ORDERED: BUPIVACAINE 0.5 % 5 MG/1 ML PF 10ML VIAL ONE (06:36)
[2019-09-21] MEDS ORDERED: EPINEPHrine INJ 1 MG/ML AMP ONE (06:37)
[2019-09-21] MEDS ORDERED: ROPIVACAINE 0.5% 5 MG/ML 30 ML VIAL ONE (06:37)
--- NOTE | 2019-09-21 06:44 | History & Physical Bridge Note ---
Date of Service September 21, 2019 History & Physical Bridge Note I have examined the patient, reviewed the History & Physical and in the interval since the performance of the History & Physical I have noted the following changes of clinical significance: no changes noted
[2019-09-21] MEDS ORDERED: LIDOCAINE HCL 2% 2 ML VIAL/AMP(20MG/ML) INFIL ONE (07:05)
[2019-09-21] MEDS ORDERED: PROPOFOL IV EMULSION 10 MG/ML 20 ML VIAL IV ONE (07:05)
[2019-09-21] MEDS ORDERED: MIDAZOLAM HCL 1 MG/ML 2ML VIAL ONE (07:06)
[2019-09-21] MEDS ORDERED: fentaNYL citrate 100 MCG/2 ML VIAL ONE (07:06)
[2019-09-21] MEDS ORDERED: ONDANSETRON INJ 2 MG/ML 2 ML VIAL ONE (07:12)
[2019-09-21] MEDS ORDERED: ePHEDrine sulfate 50 MG/ML AMP IV PRN (07:16)
[2019-09-21] MEDS ORDERED: HYDROmorphone INJ 1 MG/ML SYRINGE IV PRN (07:16)
[2019-09-21] MEDS ORDERED: ONDANSETRON INJ 2 MG/ML 2 ML VIAL IV PRN ×2 (07:16→11:22)
[2019-09-21] MEDS ORDERED: PHENYLEPHRINE 100MCG/ML 5ML SYR IV PRN (07:16)
[2019-09-21] MEDS ORDERED: MEPERIDINE HCL 25 MG/ML CARP IV PRN (07:16)
[2019-09-21] MEDS ORDERED: fentaNYL citrate 100 MCG/2 ML VIAL IV PRN (07:16)
[2019-09-21] MEDS ORDERED: LABETALOL HCL IV 5 MG/ML 20ML IV PRN (07:16)
[2019-09-21] MEDS ORDERED: ATROPINE SULFATE 0.1 MG/ML 10ML SYR IV PRN (07:16)
[2019-09-21] MEDS ORDERED: ORTHO JOINT ANESTHETIC ONE (07:18)
--- NOTE | 2019-09-21 09:49 | Operative Report ---
PG Post Operative Report Pre & Post Diagnosis Operation Date: 09/21/19 08:40 Pre-Op Diagnosis: Right Knee Advanced Osteoarthritis Post-Op Diagnosis: Right Knee Advanced Osteoarthritis I identified the patient and participated in the time-out.: Yes Procedure Operation Date: 09/21/19 08:40 Actual Procedures p Right Total Knee Arthroplasty(Right) - Del Daugherty DO Surgeon Del Daugherty, Bite Block Maker Del Crowley PAC Estimated Blood Loss 20 Findings Consistent with Post-Op Diagnosis Specimens Right femoral and tibial bone Complications none Disposition Disposition: Recovery Room Indications Gama is a pleasant 69-year-old male who presented my office with chronic increasing right knee pain. X-rays and clinical examination were diagnostic for primary osteoarthritis of the right knee. After failing conservative treatment, he elected to proceed with a right total knee arthroplasty. Description of Procedure Implants used: I used a [employer] Vanguard total knee arthroplasty system with a size 70 femur, 75 tibia, 34 patella, and a size 12 PS plus polyethylene bearing. All components were cemented in place with Palacos G cement. The patient arrived [facility] for the above procedure. There were seen in the preoperative holding area and the operative extremity was identified and signed. There were given a preoperative antibiotic, a spinal anesthetic and an adductor nerve block. There were taken back to the operating room and laid on the table in supine position. There were given basic sedation. The operative knee was then prepped and draped in sterile fashion. A timeout was done, and the patient and the operative extremity was properly identified. A midline incision was made directly over the patella. Dissection was taken down to the extensor mechanism. A subvastus arthrotomy was used. The medial retinaculum was released and the fat pad was mostly left intact. The knee was flexed and the ACL, PCL, and meniscus were removed. A drill was sent down the center of the femoral canal followed by an intramedullary jair. Off that jair a distal femoral cutting block was placed. 9 mm was resected off the distal femur at 5 of valgus. A posterior referencing AP sizing guide was then placed on the distal femur. The femur measured to be a size 70. 2 drill holes were placed in 3 of external rotation. A 4-in-1 cutting block was then impacted into place. Anterior posterior and chamfer cuts were then made. The posterior stabilizing box guide was then impacted into place and the box was resected for the posterior stabilizing component. The proximal tibia was then exposed. A drill was sent down the center of the tibial canal followed by an intramedullary jair. Off that jair a proximal tibial resection guide was placed. The proximal tibia was then resected. The tibia measured to be a size 75. The tibial plate was then placed in the appropriate rotation and the tibia was punched. The posterior aspect of the knee was then opened up and any additional meniscus fragments and osteophytes were removed. Trial components were then placed. I used a size 12 PS plus polyethylene insert. The knee was brought through a full range of motion and felt to be stable. The patella was then everted and 8 mm was resected off the posterior aspect of the patella. The patella measured to be a size 34. 3 peg holes were then drilled. A trial patella was placed. The knee was once again brought through a full range of motion and felt to be stable. Trial components were then removed. The surrounding soft tissues were injected with 100 cc of an orthopedic pain control cocktail. All components were then cemented into place with Palacos G cement. The final polyethylene insert was then snapped into place and the anterior bar was locked. Once cement was dry the tourniquet was deflated. Hemostasis was obtained. A dilute betadyne lavage was then done for 3 minutes. The joint was then irrigated with normal saline solution. The subvastus arthrotomy was then closed with #1 Vicryl suture. The skin was closed with 2-0 Vicryl, 3-0V lock suture, and bryanna. A soft compressive dressing was placed. The patient was then transferred to a hospital bed and taken to the postanesthesia care unit in stable condition. They tolerated the procedure well. I attest to the content of the Intraoperative Record and any orders documented therein. Any exceptions are noted below.
--- NOTE | 2019-09-21 10:34 | XRay Report ---
RIGHT KNEE 2 VIEWS History: Right total knee arthroplasty. Degenerative arthritis. Postop. FINDINGS: The patient is status post a right total knee arthroplasty. The hardware is intact. No frac ture or dislocation. Skin bryanna are in place. IMPRESSION: Right total knee arthroplasty. No evidence for hardware complication. ACT 112: Negative or not required by law. Electronically signed by: Ghanshyam Hill M.D. 09/21/2019 10:32 AM
--- NOTE | 2019-09-21 10:50 | Anesthesiology Progress Note ---
Date of Service September 21, 2019 Anesthesia Post Procedure Vital Signs Vital Signs: Temp Pulse Pulse Resp BP Pulse Ox 09/21/19 10:45 36.6 C 73 16 120/74 97 09/21/19 10:35 73 16 116/75 97 09/21/19 10:25 80 14 123/75 95 09/21/19 10:15 36.6 C 83 16 115/74 99 09/21/19 06:54 36.5 C 76 18 153/95 H 97 Transfer of Care Handoff Completed per policy Notes Mental Status: alert / awake / arousable Patient Amnestic to Procedure: Yes Nausea / Vomiting: adequately controlled Pain: adequately controlled Airway Patency, RR, SpO2: stable & adequate BP & HR: stable & adequate Hydration State: stable & adequate Neuraxial Anesthesia: was administered and sensory block is resolving Anesthetic Complications: no major complications apparent and Pt Satisfied with anesthetic care
[2019-09-21] MEDS: SODIUM CHLORIDE 0.9% 1000ML 1,000 ML IV SCH ×2 (11:00→21:49)
[2019-09-21] MEDS ORDERED: MAGNESIUM HYDROXIDE SUSP 30 ML UDC PO PRN (11:22)
[2019-09-21] MEDS ORDERED: METOCLOPRAMIDE HCL INJ 5 MG/ML 2 ML VIAL IV PRN (11:22)
[2019-09-21] MEDS ORDERED: HYDROmorphone INJ 0.5 MG/0.5 ML SYR IV PRN (11:22)
[2019-09-21] MEDS ORDERED: OXYCODONE HCL IR 5 MG TAB (IMMEDIATE RELEASE) PO PRN (11:22)
[2019-09-21] MEDS ORDERED: NALOXONE HCL 0.4 MG/1 ML VIAL/CARP IV PRN (11:22)
[2019-09-21] MEDS ORDERED: bisacodyL 10 MG SUPP PR PRN (11:22)
[2019-09-21] MEDS: KETOROLAC 30 MG/ML VIAL IV SCH ×2 (12:15→17:52)
[2019-09-21] MEDS: ACETAMINOPHEN 500 MG TAB PO SCH ×2 (13:38→22:52)
[2019-09-21] MEDS: CEFAZOLIN 2000MG 2,000 MG/15 ML SYR IV SCH (16:32)
[2019-09-21] MEDS ORDERED: SIMVASTATIN 40 MG TAB PO SCH (21:00)
[2019-09-21] MEDS ORDERED: SENNA 8.6 MG TAB PO SCH (21:00)
[2019-09-21] MEDS: DOCUSATE SODIUM 100 MG CAP PO SCH (21:12)
[2019-09-21] MEDS: ASPIRIN 81 MG ECTAB PO SCH (21:12)
[2019-09-22] MEDS: CEFAZOLIN 2000MG 2,000 MG/15 ML SYR IV SCH (00:09)
[2019-09-22] MEDS: KETOROLAC 30 MG/ML VIAL IV SCH ×2 (00:12→06:07)
[2019-09-22 05:23] LABS: Hematocrit (blood only) 36.2 % (42-52); Hemoglobin 12.1 g/dL (14.0-18.0); Mean Corpuscular Hemoglobin 29.8 pg (25-34); Mean Corpuscular Hgb Conc 33.4 g/dL (32-36); Mean Corpuscular Volume 89.2 fL (80-100); Mean Platelet Volume 9.8 fL (7.4-10.4); Platelet Count 299 K/uL (130-400); RDW Standard Deviation 45.5 fL (36.4-46.3); Red Blood Count 4.06 M/uL (4.7-6.1); White Blood Count 19.76 K/uL (4.8-10.8)
[2019-09-22 05:40] LABS: Calcium 8.7 mg/dl (8.5-10.1); Creatinine Clr Calc Pharmacy 81.7 ml/min; Est GFR (African American) 91.3; Est GFR (Non-African American) 78.8; Potassium 4.1 mmol/L (3.5-5.1)
[2019-09-22] MEDS: ACETAMINOPHEN 500 MG TAB PO SCH (06:07)
[2019-09-22] MEDS ORDERED: dexAMETHasone 4 MG TAB PO SCH (08:00)
[2019-09-22] MEDS: DOCUSATE SODIUM 100 MG CAP PO SCH (08:43)
[2019-09-22] MEDS: ASPIRIN 81 MG ECTAB PO SCH (08:43)
[2019-09-22] MEDS ORDERED: MULTIVITAMIN TAB PO SCH (09:00)
[2019-09-22] MEDS ORDERED: FINASTERIDE 5 MG TAB PO SCH (09:00)
--- NOTE | 2019-09-22 09:08 | Orthopedic Progress Note ---
Date of Service September 22, 2019 Assessment & Plan (1) History of total right knee replacement: Overall he is doing very well he is not having too much pain in his right knee. He will be seen by physical therapy today for ambulation and range of motion exercises. He can be discharged home later today. He is on aspirin for DVT prophylaxis. He will follow-up with orthopedics in 2 weeks. Present on Admission?: Yes Subjective Gama was seen and examined at bedside this morning. Overall he is doing very well. Is not having too much pain in the right knee. He has already been up and ambulating. His pain is controlled and he has no complaints. Physical Exam Musculoskeletal: On physical examination of the right knee, the dressing had some bloody drainage and has been reinforced. His right lower extremity is neurovascular intact, he is sitting in a chair with his knee flexed at about 80 degrees. Results & Data Vital Signs (Past 12 Hours) Vital Signs Temp Pulse Resp BP Pulse Ox 09/22/19 06:25 36.4 C L 72 18 137/83 99 09/22/19 03:56 36.7 C 81 18 137/81 97 09/21/19 22:54 36.7 C 92 H 14 132/87 95 Laboratory Results H & H 08/31/19 09/22/19 Range/Units 12:10 05:07 Hgb 14.0 12.1 L (14.0-18.0) g/dL Hct 42.3 36.2 L (42-52) % Coagulation 08/31/19 Range/Units 12:10 INR 1.0 (0.9-1.1) Diagnostic Findings Postoperative x-rays of the right knee show the prosthesis to be in anatomic alignment without any evidence of fracture, dislocation, or loosening. PG Care Time/CCT Total # of Minutes Spent Total Time Spent with Patient: Total time spent is greater than 50% in coordination of care (as documented) at patient's floor/unit and/or counseling patient: Coding Level of Care Code None Diagnoses History of total right knee replacement Z96.651
--- NOTE | 2019-09-22 09:14 | Discharge Summary ---
Date of Service September 22, 2019 Admission HPI Per Admitting Provider Gama is a pleasant 69-year-old male who is 6 weeks status post right total shoulder arthroplasty. He is also dealing with a lot of arthritis in his right knee. X-rays and clinical examination have been diagnostic for primary osteoarthritis. After failing conservative treatment, he has elected proceed with a right total knee arthroplasty. Principal Diagnosis Right total knee arthroplasty Discharge Data Allergies Allergy/AdvReac Type Severity Reaction Status Date / Time No Known Allergies Allergy Verified 09/21/19 06:51 Consultations 09/21/19 11:22 Consult Case Management - Discharge Planning Routine Procedures Performed Operation Date: 09/21/19 08:40 Actual Procedures p Right Total Knee Arthroplasty(Right) - Del Daugherty DO Ordered Studies 09/21/19 05:00 US - OR guided needle placemen Urgent Hospital Course (1) History of total right knee replacement: On September 21, 2019 Gama arrived at [facility] and underwent a right total knee arthroplasty without complication. He had a spinal anesthetic and a right adductor nerve block. Postoperatively he was started on aspirin for DVT prophylaxis and discharged to general orthopedic floors. His hospital c ourse was uneventful. On postop day #1 his H&H was stable and his pain was well controlled. He was able to ambulate well with physical therapy doing range of motion and ambulation exercises. He was then discharged home. He will follow- up with orthopedics in 2 weeks. Total Time Total Time Spent Total Time Spent (In Minutes): 20 Discharge Plan Discharge Items Reason For Visit: RIGHT KNEE DEGENERATIVE JOINT DISEASE Discharge Diagnosis: Right knee replacement Activity: As commented below Non-emergency contact: Surgeon Call non-emergency contact if: your wound has increased redness and your wound has increased drainage Follow-up/Referrals: August Vaca III, MD [Primary Care Provider] - Diet: Regular Addtl Attending Provider Instructions: Activity and Therapy Recommendations: * If you are using [facility] then therapy will be provided at your home until they feel you have accomplished all of your goals. * If you are using [facility] then Physical Therapy will be provided until they feel you are ready to start Outpatient Physical Therapy. * If you are not using home therapy then Outpatient Physical Therapy should start about 3-5 days from your day of surgery. Therapy will last about 6-10 weeks * It is important not to put a pillow under your knee when you are relaxing or sleeping. It is just as important to make sure you are getting your knee perfectly straight as it is to regain your knee bend. * You were shown a series of exercises in the hospital. Do these exercises three times each day including the exercises you were shown in physical therapy. * Get up and walk several times each day. For the first four weeks, try not to stand or walk for more than one hour at a time. If you do stand or walk for more than one hour, you will not hurt anything, but your leg will likely swell. * As you feel comfortable, you may change from the walker or crutches to a cane and then to independent walking. Medications: * Narcotic You will likely be sent home from the hospital with a prescription for the narcotic pain medication that worked best throughout your stay. * Aspirin Most patients will be required to take Aspirin 81mg twice a day for 6 weeks after surgery. This is obtained [id number] and a prescription is not necessary. * Other medications may be prescribed for specific circumstances. If you have any questions, please call the office at . * Resume previous home medications unless otherwise instructed TEDs/Elastic Stockings: The white elastic stockings help limit swelling and prevent blood clots from forming in your legs.~ The more you wear them, the more they work. Wear them for six weeks. Dressing Care: If the incision is not draining then you may leave the bryanna open to air. If there is a little bit of drainage or if the bryanna are getting stuck on your clothing then cover the incision with a dry dressing. The bryanna will be removed at your 2 week follow-up appointment. Showering: You may shower 5 days from the day of surgery. Let the soapy shower water run over the bryanna and pat them dry. Do not scrub or soak the incision. Things To Watch For: * Drainage from the incision site that occurs more than one week after your surgery. * Increased redness at the incision site. * Fever above 102 degrees Fahrenheit. * Unusual chest pain or shortness of breath. * Call [facility] at with any of the above problems Follow-Up Visit: Follow-up with Dr. Daugherty 2-3 weeks after your day of surgery. An appointment was probably scheduled when you signed-up for surgery in the office. If you have any questions call Office Instructions: More detailed instructions as well as Frequently Asked Questions were provided in a folder by our office when you signed-up for surgery. Please review these instructions when you get home. If you have any further questions or concerns, please feel free to call the office at [phone] Pending Studies at Discharge: No Stand-Alone Forms: [facility] [employer], Smoking Cessation Medications and DC Order Prescriptions: New oxycodone 5 mg Tablet 5 mg PO Q4H PRN (Reason: pain) Qty: 30 RF: 0 Continued finasteride [Proscar] 5 mg tablet 5 mg PO QAM Qty: 90 RF: 0 multivitamin Tablet 1 tab PO QAM RF: 0 simvastatin 40 mg Tablet 40 mg PO PM RF: 0 Changed aspirin [Aspirin Low Dose] 81 mg Tablet,Delayed Release (Dr/Ec) 81 mg PO BID 42 Days Qty: 0 RF: 0 Admission Data Admit Date/Time: 09/21/19 10:18 Attending Provider: Del Daugherty Admit Provider: Del Daugherty Primary Care Provider: August Vaca III Coding Level of Care Code D/C Day Management <30 mins Diagnoses History of total right knee replacement Z96.651
== END 2019-09-22 11:12 | disposition home or self-care (01) ==
LOC: ASU 06:32 → INTOOBSV 10:18 → 3E 10:18